=== PATIENT | male | born 1995 | race Caucasian/White ===

== ENCOUNTER 2022-02-11 06:43 | Emergency (ER) | payer BC ==
[2022-02-11] MEDS ORDERED: ONDANSETRON 4 MG (ODT) TAB ONE (06:57)
[2022-02-11 07:06] LABS: Urine Blood Negative (Negative); Urine Glucose Negative (Negative); Urine Protein Trace (Negative); Urine Specific Gravity >=1.030 (1.005-1.030)
[2022-02-11] MEDS ORDERED: IBUPROFEN 400 MG TAB ONE (07:30)
[2022-02-11 07:43] LABS: SARS-COV-2 RT PCR NEGATIVE (NEGATIVE)
--- NOTE | 2022-02-11 08:20 | ER ---
Nurse's Notes [facility] Name: Patel Weldon Age: 26 yrs Sex: Male : 1995 Arrival Date: 02/11/2022 Time: 06:44 Bed 7 Private MD: Diagnosis: Influenza due to identified novel influenza A virus Presentation: 02/11 06:44 Chief complaint: EMS states: Pt drove in from [place] last night and hasn't been kd3 feeling well. He had a temp of 101.7 at home and he took some NyQuil. He woke up this morning, generally not feeling well with a cough. Coronavirus screen: Vaccine status: Patient reports receiving the 2nd dose of the covid vaccine. Coronavirus screen: Vaccine status: Patient reports receiving the 2nd dose of the covid vaccine. moderna. Ebola Screen: No symptoms or risks identified at this time. Initial Sepsis Screen: Does the patient meet any 2 criteria? No. Patient's initial sepsis screen is negative. Does the patient have a suspected source of infection? No. Patient's initial sepsis screen is negative. Risk Assessment: Do you want to hurt yourself or someone else? Patient reports no desire to harm self or others. Onset of symptoms was February 11, 2022. 06:44 Method Of Arrival: EMS: [facility] kd3 06:44 Acuity: JAYSON 4 kd3 Triage Assessment: 06:47 General: Appears ill, Behavior is calm, cooperative. Pain: Complains of pain in kd3 generalized body aches. Neuro: Level of Consciousness is awake, alert, obeys commands, Oriented to person, place, time, situation. Cardiovascular: Patient's skin is warm and dry. Respiratory: Airway is patent Trachea midline Respiratory effort is even, unlabored, Respiratory pattern is regular, symmetrical. 06:47 GI: Reports nausea. kd3 Historical: - Allergies: 06:47 No Known Allergies; kd3 - Home Meds: 06:47 None [Active]; kd3 - PMHx: 06:47 None; kd3 - Immunization history:: Adult Immunizations up to date, Client reports receiving the 2nd dose of the Covid vaccine. - Social history:: Smoking status: unknown. Screenin:49 Abuse screen: Denies threats or abuse. Denies injuries from another. Nutritional kd3 screening: No deficits noted. Tuberculosis screening: No symptoms or risk factors identified. Fall Risk None identified. Assessment: 06:53 General: Appears in no apparent distress. ill, Behavior is calm, cooperative. Pain: kd3 Complains of pain in generalized body aches. Neuro: Level of Consciousness is awake, alert, obeys commands, Oriented to person, place, time, situation. Respiratory: Airway is patent Trachea midline Respiratory effort is even, unlabored. 07:17 Reassessment: Pt reports decsreased nausea, water provided for PO challenge as ordered. jl7 08:49 Reassessment: No changes from previously documented assessment. mb9 Vital Signs: 06:44 BP 131 / 82; Pulse 104; Resp 24; Temp 100(O); Pulse Ox 99% ; Weight 129.27 kg; Height 6 kd3 ft. (182.88 cm); Pain 7/10; 06:52 BP 112 / 85; Pulse 109; Resp 19; Pulse Ox 100% on R/A; kd3 07:33 Pulse 112; Resp 16; Temp 100.1(O); Pulse Ox 96% ; jl7 08:48 BP 125 / 73; Pulse 96; Resp 16; Pulse Ox 96% ; mb9 06:44 Body Mass Index 38.65 (129.27 kg, 182.88 cm) kd3 ED Course: 06:44 Patient arrived in ED. kd3 06:47 Triage completed. kd3 06:47 Arm band placed on. kd3 06:49 [facility] Conway [facility]C [facility] kb 06:49 Dominic Mancilla MD is Attending Physician. kb 06:49 Latoya Worrell RN is Primary Nurse. kd3 06:49 Patient has correct armband on for positive identification. kd3 06:57 Strep Sent. aa9 06:57 COVID-19/FLU A+B Sent. aa9 07:06 Strep Sent. aa9 07:06 COVID-19/FLU A+B Sent. aa9 07:17 Pulse ox on. NIBP on. Warm blanket given. jl7 07:17 No provider procedures requiring assistance completed. Patient did not have IV access jl7 during this emergency room visit. Administered Medications: 07:01 Drug: Ondansetron 4 mg Route: PO; aa9 07:06 Follow up: Response: No adverse reaction aa9 07:18 Follow up: Response: Nausea is decreased jl7 07:32 Drug: Ibuprofen 800 mg Route: PO; jl7 08:48 Drug: Tamiflu (oseltamivir) 75 mg Route: PO; mb9 Medication: 06:49 VIS not applicable for this client. kd3 Outcome: 08:20 Discharge ordered by MD. clinton 08:49 Discharged to home ambulatory. mb9 08:49 Condition: stable 08:49 Discharge instructions given to patient, Instructed on discharge instructions, Demonstrated understanding of instructions, follow-up care, medications, Prescriptions given X 1. 08:49 Patient left the ED. mb9 Signatures: Laura Conway, COMPOUND MIXER-C COMPOUND MIXER-Jose Pimentel RN RN jl7 Latoya Worrell RN RN kd3 Santa Villagomez RN RN aa9 Alison Cruz RN RN mb9
--- NOTE | 2022-02-11 08:20 | EDPHYS ---
Physician Documentation [facility] Name: Patel Weldon Age: 26 yrs Sex: Male : 1995 Arrival Date: 02/11/2022 Time: 06:44 Bed 7 Private MD: ED Physician Dominic Mancilla HPI: 02/11 06:58 This 26 yrs old Male presents to ER via EMS with complaints of Flu Symptoms. kb 06:58 The patient or guardian reports cough, that is intermittent, described as mild, flu kb symptoms, low-grade fever, myalgias. Onset: The symptoms/episode began/occurred yesterday, at 06:00. Severity of symptoms: At their worst the symptoms were moderate, in the emergency department the symptoms are unchanged. Modifying factors: The symptoms are alleviated by nothing, the symptoms are aggravated by nothing. Associated signs and symptoms: Pertinent positives: fever, nausea, rhinorrhea, sore throat, Pertinent negatives: chest pain, diarrhea, ear ache, vomiting. The patient has not experienced similar symptoms in the past. The patient has not recently seen a physician. Pt reports cough, fever, chills, nausea, bodyaches, headache and lightheadedness that started at 0600 yesterday and has gotten worse. Historical: - Allergies: 06:47 No Known Allergies; kd3 - Home Meds: 06:47 None [Active]; kd3 - PMHx: 06:47 None; kd3 - Immunization history:: Adult Immunizations up to date, Client reports receiving the 2nd dose of the Covid vaccine. - Social history:: Smoking status: unknown. ROS: 06:58 Cardiovascular: Negative for chest pain, palpitations, and edema. kb 06:58 Constitutional: Positive for body aches, chills, fatigue, fever, malaise. 06:58 ENT: Positive for sinus congestion, sore throat. 06:58 Respiratory: Positive for cough. 06:58 Neuro: Positive for dizziness, headache. 06:58 All other systems are negative. Exam: 06:58 Constitutional: This is a well developed, well nourished patient who is awake, alert, kb and in no acute distress. Head/Face: Normocephalic, atraumatic. ENT: Moist Mucous membranes Cardiovascular: Regular rate and rhythm with a normal S1 and S2. No gallops, murmurs, or rubs. No pulse deficits. Respiratory: Respirations even and unlabored. No increased work of breathing. Talking in full sentences Abdomen/GI: Soft, non-tender. No distention Skin: Warm, dry with normal turgor. Normal color. MS/ Extremity: Pulses equal, no cyanosis. Neurovascular intact. Full, normal range of motion. Neuro: Awake and alert, GCS 15, oriented to person, place, time, and situation. Moves all extremities. Normal gait. Psych: Awake, alert, with orientation to person, place and time. Behavior, mood, and affect are within normal limits. Vital Signs: 06:44 BP 131 / 82; Pulse 104; Resp 24; Temp 100(O); Pulse Ox 99% ; Weight 129.27 kg; Height 6 kd3 ft. (182.88 cm); Pain 7/10; 06:52 BP 112 / 85; Pulse 109; Resp 19; Pulse Ox 100% on R/A; kd3 07:33 Pulse 112; Resp 16; Temp 100.1(O); Pulse Ox 96% ; jl7 08:48 BP 125 / 73; Pulse 96; Resp 16; Pulse Ox 96% ; mb9 06:44 Body Mass Index 38.65 (129.27 kg, 182.88 cm) kd3 MDM: 06:45 Patient medically screened. rn 06:58 Data reviewed: vital signs, nurses notes. Data interpreted: Pulse oximetry: on room air kb is 100 %. Interpretation: normal. 08:19 Counseling: I had a detailed discussion with the patient and/or guardian regarding: the kb historical points, exam findings, and any diagnostic results supporting the discharge/admit diagnosis, lab results, the need for outpatient follow up, a family practitioner, to return to the emergency department if symptoms worsen or persist or if there are any questions or concerns that arise at home. 02/11 06:46 Order name: COVID-19/FLU A+B; Complete Time: 08: rn 02/11 06:46 Order name: Strep; Complete Time: 08: rn 02/11 07:06 Order name: Urine Dipstick-Ancillary; Complete Time: 07:07 EDIN 02/11 08:04 Order name: Throat Culture EDIN 02/11 06:57 Order name: Urine Dipstick-Ancillary (obtain specimen); Complete Time: 07:06 kb 02/11 07:08 Order name: PO challenge; Complete Time: 07:23 kb Administered Medications: 07:01 Drug: Ondansetron 4 mg Route: PO; aa9 07:06 Follow up: Response: No adverse reaction aa9 07:18 Follow up: Response: Nausea is decreased jl7 07:32 Drug: Ibuprofen 800 mg Route: PO; jl7 08:48 Drug: Tamiflu (oseltamivir) 75 mg Route: PO; mb9 Disposition: 19:38 Co-signature as Attending Physician, Dominic Mancilla MD. rn Disposition Summary: 02/11/22 08:20 Discharge Ordered Location: Home kb Condition: Stable kb Diagnosis - Influenza due to identified novel influenza A virus kb Followup: kb - With: Emergency Department - When: As needed - Reason: Worsening of condition Followup: kb - With: Private Physician - When: 2 - 3 days - Reason: Recheck today's complaints, Continuance of care, Re-evaluation by your physician Discharge Instructions: - Discharge Summary Sheet kb - Influenza, Adult, [id number] kb Forms: - Medication Reconciliation Form kb - Thank You Letter kb - Antibiotic Education kb - Prescription Opioid Use kb Prescriptions: - Tamiflu 75 mg Oral Capsule - take 1 tablet by ORAL route every 12 hours for 5 days; 10 tablet; Refills: 0, kb Product Selection Permitted Signatures: Dispatcher [employer] Laura Villanueva, ANIMAL GENETICIST-C ANIMAL GENETICIST-Ckb Dominic Mancilla MD MD rn Leal, Jahala, RN RN jl7 Latoya Worrell RN PRISCILLA kd3 Santa Villagomez RN RN aa9 Alison Cruz, RN RN mb9
[2022-02-11] MEDS ORDERED: OSELTAMIVIR 75 MG CAP ONE (08:25)
[2022-02-11 08:56] VITALS: TEMP 100.1; O2SAT 96
[2022-02-11 08:57] VITALS: BP 125/73
== END 2022-02-11 08:49 | disposition home or self-care (01) ==
LOC: ER 06:43
DX: J10.1 Influenza due to other identified influenza virus with other respiratory manifestations (principal); Z20.822 Contact with and (suspected) exposure to COVID-19
CPT/HCPCS: 87070; 87081; 81003; 0240U; 99284; Q0162